=== PATIENT | female | born 1995 | race African-American/Black ===

== ENCOUNTER 2018-02-18 12:43 | Emergency (ER) | payer MEDICAID ==
[~2018-02-18] VITALS: Ht 157.5 cm; Wt 70.8 kg
[2018-02-18 13:25] VITALS: BP 183/91
== END 2018-02-18 16:06 | disposition home or self-care (01) ==
LOC: ER 12:43
DX: J20.9 Acute bronchitis, unspecified (principal); J02.9 Acute pharyngitis, unspecified
CPT/HCPCS: 71046

== ENCOUNTER 2019-11-11 08:13 | Emergency (ER) | payer MEDICAID ==
[~2019-11-11] VITALS: Ht 160 cm; Wt 74.8 kg
[2019-11-11 08:37] VITALS: BP 152/100
== END 2019-11-11 10:19 | disposition home or self-care (01) ==
LOC: ER 08:13
DX: S66.912A Strain of unspecified muscle, fascia and tendon at wrist and hand level, left hand, initial encounter (principal); Z88.6 Allergy status to analgesic agent; W18.39XA Other fall on same level, initial encounter; Y93.01 Activity, walking, marching and hiking; Y92.89 Other specified places as the place of occurrence of the external cause; Y99.8 Other external cause status
CPT/HCPCS: 73060; 81025

== ENCOUNTER 2020-11-11 10:47 | Emergency (ER) | payer MEDICAID ==
[~2020-11-11] VITALS: Ht 157.5 cm; Wt 68.0 kg
[2020-11-11 11:36] LABS: Basophils # (auto) 0 10 ^3/uL (0-0.2); Basophils % (auto) 0.5 % (0.0-2.0); Eosinophils # (auto) 0.2 10 ^3/uL (0-0.8); Eosinophils % (auto) 2.9 % (0.0-7.0); Hematocrit 39.4 % (36.0-46.0); Hemoglobin 13.3 g/dL (12.2-16.2); Lymphocytes # (auto) 2.1 10 ^3/uL (0.4-5.4); Lymphocytes % (auto) 34.3 % (10.0-50.0); Mean Corpuscular Hgb Conc. 33.8 g/dL (32.0-36.0); Mean Corpuscular Volume 91.6 fL (80.0-100.0); Monocytes # (auto) 0.7 10 ^3/uL (0-1.3); Monocytes % (auto) 11.5 % (0.0-12.0); Neutrophils # (auto) 3.1 10 ^3/uL (1.6-8.6); Neutrophils % (auto) 50.8 % (37.0-80.0); Nucleated Red Blood Cells % 0.1 %; Red Cell Distribution Width 13.1 % (11.8-14.3); White Blood Cell 6.1 10^3/uL (4.4-10.8)
[2020-11-11 11:54] LABS: Calcium 8.8 mg/dL (8.5-10.1); Potassium 4.7 mmol/L (3.5-5.1)
[2020-11-11 12:00] LABS: Albumin 3.4 g/dL (3.4-5.0); BUN/Creatinine Ratio 10.3; Bilirubin, Total 0.2 mg/dL (0.2-1.0); Total Protein 7.5 g/dL (6.4-8.2)
[2020-11-11 13:07] LABS: Urine Bacteria NONE SEEN /hpf (None Seen); Urine Blood 1+ /uL (Negative); Urine Specific Gravity 1.003 (1.001-1.035); Urine Sperm PRESENT /hpf (None Seen); Urine WBC <1 /hpf (0 - 5)
[2020-11-11 14:58] VITALS: BP 140/85
== END 2020-11-11 14:29 | disposition home or self-care (01) ==
LOC: ER 10:47
DX: O20.8 Other hemorrhage in early pregnancy (principal); Z88.6 Allergy status to analgesic agent; Z3A.09 9 weeks gestation of pregnancy
CPT/HCPCS: 36415; 76801; 80053; 81001; 84702; 85025

== ENCOUNTER 2021-03-21 19:26 | Emergency (ER) | payer MEDICAID ==
[~2021-03-21] VITALS: Ht 160 cm; Wt 68.0 kg
[2021-03-21 19:42] VITALS: BP 147/94
[2021-03-21] MEDS ORDERED: HYDROcodone-ACET 10/325MG TAB PO ONE (21:15)
== END 2021-03-22 01:22 | disposition home or self-care (01) ==
LOC: ER 19:27
DX: S82.202B Unspecified fracture of shaft of left tibia, initial encounter for open fracture type I or II (principal); Z88.6 Allergy status to analgesic agent; X58.XXXA Exposure to other specified factors, initial encounter; Y93.89 Activity, other specified; Y92.89 Other specified places as the place of occurrence of the external cause; Y99.8 Other external cause status
CPT/HCPCS: 73590; 93971

== ENCOUNTER 2024-09-20 12:58 | Emergency (ER) | payer MEDICAID ==
[~2024-09-20] VITALS: Ht 157.5 cm; Wt 77.0 kg
--- NOTE | 2024-09-20 13:07 | ED.PDOC ---
Psychiatric HPI Comments HPI: This is a 28 year old female CRISTINEA presenting to the ED with chief complaint of anxiety attack. Patient reports that she had experienced an anxiety attack yesterday that was unprovoked, but self-resolved. Patient relays that [place] her [place], she started to experience the same symptoms with hyperventilation, needing to rib puller. Patient states she has no history of anxiety or psychiatric issues. Patient notes that she feels okay now, but she was advised by her mother to come to the ED for further evaluation. Patient admits to drinking 2 cans of alcoholic seltzers 2 days ago. Patient denies any chest pain, SOB, dizziness, syncope, SI, or HI. Initial Vitals BP: 143/104 HR: 92 RR: 18 O2 Sat: 95% Temp: 98.2F Past Medical history: None Past Surgical history: None Medications: None Social History: Occasional ETOH. Denies smoking and drug use. Allergies: Aspirin HPI: Poor Historian. REVIEW OF SYSTEMS: CONSTITUTIONAL: Denies acute: fever, diaphoresis, chills, generalized weakness. HEAD: Denies acute: headache, photophobia Eyes: Denies acute: Double vision, vision loss, eye pain, eye discharge. EARS: Denies acute: tinnitus, hearing loss, ear discharge, ear pain, THROAT: Denies acute: sore throat, swelling, difficulty swallowing , pain with swallowin g, change in voice. NECK: Denies acute: neck pain, neck swelling, stiff neck. HEART: Denies acute : chest pain, palpitations, LUNGS: Denies acute: SOB, wheezing, cough, hemoptysis ABDOMEN: Denies acute: abdominal pain, Nausea, Vomiting, diarrhea, melena , hematemesis, hematochezia SKIN: Denies acute: rash, redness, lesions, itchiness. EXTREMITIES: Denies acute: calf pain, numbness, tingling, weakness, denies pain in extremity. Denies acute: Low back pain. Neuro: Denies acute: focal neurological deficit, motor or sensory focal neurological deficit, tremors, seizure like activity, confusion, dizziness, change in mental status, loss of bowel or bladder function, cauda equina like symptoms. : Denies acute: dysuria, hematuria, flank pain, increase in urinary frequency. PSYCH: Denies acute: hallucination, suicidal ideation, homicidal ideation. FEMALE: Denies acute: abnormal vaginal bleeding, foul odor, unusual discharge. PHYSICAL EXAM: General: ----no----acute distress, awake and alert. Head: normocephalic, atraumatic. Neck: supple, trachea is midline, no swelling. Throat: Normal phonation. Eyes:, no erythema, no purulent discharge, no proptosis, no icterus. Heart: regular rate, regular rhythm, no significant murmur appreciated. Lungs: no apparent respiratory distress, Able to speak in full sentences. No wheezing, no rhonchi, no crackles. No stridors Clear to auscultation bilaterally. Abdomen: non tender to palpation, non distended, soft, no guarding, no rebound, + bowel sounds. Neuro: Awake, Alert, oriented to name, self, situation, follows commands GCS=15. Speech is normal. Skin: no petechia, no purpura, no cyanosis, non-pale, not jaundice. Lower extremities: --no - Pitting edema no deformity, no focal swelling, no calf TTP. Makes eye contact. moves all four extremities. Face: no apparent facial droop. ED COURSE: DISCLAIMER: This medical document was created using an electronic medical record system with voice recognition software and computerized dictation system. Although this document has been carefully reviewed, there might still be some phonetic and typographical errors. Occasional wrong-word or "sound-alike" substitutions may have occurred due to the inherent limitations of voice recognition software. These areas are purely typographical due to imperfections of the software programs and do not reflect any compromise in the patient's medical care. Please read the chart carefully and recognize, using context, where these substitutions have occurred. Time Seen by MD: 13:05 Primary Care Provider: maribeth spicer Reviewed Notes: Medications, Allergies Information Source: Patient, Emergency Med Personnel Mode of Arrival: EMS Was a procedure done? Was a procedure done?: No Psych Differential Dx Psych. Differential Dx: Anxiety X-Ray, Labs, Meds, VS Vital Signs Date Time Temp Pulse Resp B/P (MAP) Pulse Ox O2 Delivery O2 Flow Rate FiO2 7/10/25 14:36 98.2 94 18 143/104 (117) 95 98.2 09/20/24 14:30 98.4 93 20 151/104 (120) 100 98.4 09/20/24 13:17 92 Lab Test 09/20/24 15:49 09/20/24 13:30 Range/Units Urine Color Colorless Yellow Urine Clarity Clear Clear Urine pH 6.0 5.0-9.0 Urine Specific [place] 1.002 1.001-1.035 Urine Protein Negative Negative Urine Ketones Negative Negative Urine Blood Negative Negative /uL Urine Nitrite Negative Negative Urine Bilirubin Negative Negative Urine Urobilinogen Normal Negative mg/dL Urine Leukocyte Esterase Negative Negative /uL Urine RBC <1 0 - 4 /hpf Urine Microscopic WBC < 1 0-5 /HPF Urine Squamous Epithelial Cells None seen <5 /hpf Urine Bacteria None seen None Seen /hpf Urine Glucose Normal Normal mg/dL Urine Test Negative Negative Urine Opiates Screen Neg NEGATIVE Urine Fentanyl Screen Neg NEGATIVE Urine Barbiturates Screen Neg NEGATIVE Urine Phencyclidine Screen Neg NEGATIVE Urine Amphetamines Screen Neg NEGATIVE Urine Benzodiazepines Screen Neg NEGATIVE Urine Cocaine Screen Neg NEGATIVE Urine Cannabinoids Screen Neg NEGATIVE White Blood Count 4.6 4.4-10.8 10^3/uL Red Blood Count 4.54 4.0-5.20 10^6/uL Hemoglobin 15.2 12.2-16.2 g/dL Hematocrit 44.2 36.0-46.0 % Mean Corpuscular Volume 97.4 80.0-100.0 fL Mean Corpuscular Hemoglobin 33.4 H 28.0-32.0 pg Mean Corpuscular Hemoglobin Concent 34.3 32.0-36.0 g/dL Red Cell Distribution Width 15.3 H 11.8-14.3 % Platelet Count 254 140-450 10^3/uL Mean Platelet Volume 7.0 6.9-10.8 fL Neutrophils (%) (Auto) 41.3 37.0-80.0 % Lymphocytes (%) (Auto) 41.4 10.0-50.0 % Monocytes (%) (Auto) 15.9 H 0.0-12.0 % Eosinophils (%) (Auto) 0.9 0.0-7.0 % Basophils (%) (Auto) 0.5 0.0-2.0 % Neutrophils # (Auto) 1.9 1.6-8.6 10 ^3/uL Lymphocytes # (Auto) 1.9 0.4-5.4 10 ^3/uL Monocytes # (Auto) 0.7 0-1.3 10 ^3/uL Eosinophils # (Auto) 0 0-0.8 10 ^3/uL Basophils # (Auto) 0 0-0.2 10 ^3/uL Nucleated Red Blood Cells 0.1 % Sodium Level 134 L 136-145 mmol/L Potassium Level 3.6 3.5-5.1 mmol/L Chloride Level 97 L 98-107 mmol/L Carbon Dioxide Level 23 20-31 mmol/L Anion Gap 14 5-15 Blood Urea Nitrogen < 5 L 9-23 mg/dL Creatinine 0.81 0.550-1.02 mg/dL Glomerular Filtration Rate Calc 100 >90 mL/min BUN/Creatinine Ratio 6.2 L 10.0-20.0 Serum Glucose 90 74-106 mg/dL Calcium Level 9.2 8.7-10.4 mg/dL Magnesium Level 1.8 1.6-2.6 mg/dL Total Bilirubin 0.5 0.2-1.0 mg/dL Aspartate Amino Transferase (AST) 236 H 13-40 U/L Alanine Aminotransferase (ALT) 140 H 7-40 U/L Alkaline Phosphatase 108 46-116 U/L Total Protein 7.7 5.7-8.2 g/dL Albumin 4.6 3.2-4.8 g/dL Plasma/Serum Blood Alcohol 270.0 H <10 mg/dL Current Medications Medications (Trade) Dose Ordered Sig/Awa Route Start Time Stop Time Status Last Admin Sodium Chloride 1,000 ml @ 1,000 mls/hr Q1H ONCE IV 09/20/24 13:15 09/20/24 14:14 DC 09/20/24 13:15 Time of 1ST Reevaluation: 14:05 Reevaluation 1ST: Unchanged Patient Education/Counseling: Diagnosis, Treatment Family Education/Counseling: No Family Present Departure 1 Departure Time of Disposition: 16:31 Impression: Primary Impression: Alcohol abuse Additional Impressions: Elevated LFTs Eloped from emergency department Additional Instructions: Patient eloped Discharged With: Self Critical Care Note Critical Care Time?: No I personally scribed for TAYLOR BURGOS DO ([email or web address]) on 09/20/24 at 13:07. Electronically submitted by Kranthi Sotelo ([email or web address]). I personally scribed for TAYLOR BURGOS DO ([email or web address]) on 09/20/24 at 13:09. Electronically submitted by Kranthi Sotelo ([email or web address]). I personally scribed for TAYLOR BURGOS DO ([email or web address]) on 09/20/24 at 14:39. Electronically submitted by Kranthi Sotelo ([email or web address]). TAYLOR BURGOS DO Sep 20, 2024 13:07
[2024-09-20] MEDS: SODIUM CHLORIDE 0.9% 1,000 ML IV ONE (13:15)
[2024-09-20 13:43] LABS: Hematocrit 44.2 % (36.0-46.0); Hemoglobin 15.2 g/dL (12.2-16.2); Mean Corpuscular Hemoglobin 33.4 pg (28.0-32.0); Mean Corpuscular Volume 97.4 fL (80.0-100.0); Nucleated Red Blood Cells % 0.1 %
[2024-09-20 14:03] LABS: Albumin 4.6 g/dL (3.2-4.8); Alkaline Phosphatase 108 U/L (46-116); Anion Gap 14 (5-15); Calcium 9.2 mg/dL (8.7-10.4); Carbon Dioxide 23 mmol/L (20-31); Glucose 90 mg/dL (74-106); Potassium 3.6 mmol/L (3.5-5.1); Total Protein 7.7 g/dL (5.7-8.2)
[2024-09-20 14:04] LABS: Bilirubin, Total 0.5 mg/dL (0.2-1.0)
[2024-09-20 14:05] LABS: Alanine Aminotransferase 140 U/L (7-40); BUN/Creatinine Ratio 6.2 (10.0-20.0); Blood Urea Nitrogen < 5 mg/dL (9-23); Chloride 97 mmol/L (98-107); Sodium 134 mmol/L (136-145)
[2024-09-20 14:36] VITALS: BP 143/104; PULSE 94; RESP 18; TEMP 98.2; O2SAT 95
[2024-09-20] MEDS ORDERED: SODIUM CHLORIDE 0.9% 1,000 ML IV ONE (15:15)
[2024-09-20 17:09] LABS: Urine Protein, UAD Negative (Negative)
[2024-09-20 17:19] LABS: Amphetamine Screen, Urine Neg (NEGATIVE); Barbiturate Scree,Urine Neg (NEGATIVE); Benzodiazephine Screen, Urine Neg (NEGATIVE); Cannabinoid Screen, Urine Neg (NEGATIVE); Cocaine Screen, Urine Neg (NEGATIVE); Opiate Scree,Urine Neg (NEGATIVE); Phencyclidine Screen, Urine Neg (NEGATIVE)
--- NOTE | 2024-09-20 18:54 | ECG ---
[facility] Test Date: 2024-09-20 Test Time: 13:17:33 Pat Name: OLGA LIDIA EMERY Department: ER Room: Gender: F Outside Sales Engineer: SITA : 1995 Requested By: TAYLOR BURGOS Order Number: [id number] Reading MD: Shay Palma Measurements Intervals [place] Rate: 92 P: -12 UT: 180 QRS: -9 QRSD: 92 T: -7 QT: 355 QTc: 440 Interpretive Statements Sinus rhythm Low voltage, precordial leads Abnormal Q suggests anterior infarct Nonspecific T abnormalities, diffuse leads Borderline ST elevation, lateral leads Electronically Signed On 09-20-2024 19:09:49 PDT by Shay Palma Please click the below link to view image of tracing.
== END 2024-09-20 18:10 | disposition left against medical advice (07) ==
LOC: EDBD 12:58 → ER 12:58
DX: F10.10 Alcohol abuse, uncomplicated (principal); F41.9 Anxiety disorder, unspecified; Z79.899 Other long term (current) drug therapy; Z88.6 Allergy status to analgesic agent; Y90.8 Blood alcohol level of 240 mg/100 ml or more
CPT/HCPCS: 36415; 80053; 80307; 80320; 81001; 81025; 83735; 85025; 93005; 96360; 99284; J7030